=== PATIENT | female | born 1960 | race Two or more races ===

== ENCOUNTER 2023-11-07 06:17 | Day surgery (SDC) | payer BC, SELFPAY ==
[2023-11-07] VITALS (10 sets, daily range): BP systolic 91–132; BP diastolic 45–70; BMI 22.7
[2023-11-07] MEDS: NORMOSOL-R 1000 IV (07:53)
[2023-11-07] MEDS: DILAUDID 0.25 MG IV (10:18)
[2023-11-07] MEDS: DILAUDID 0.5 MG IV (10:29)
[2023-11-07] MEDS: DIFLUCAN 150 MG PO (10:36)
[2023-11-07] MEDS: ROXICODONE 5 MG PO (11:03)
== END 2023-11-07 12:25 | disposition home or self-care (01) ==
LOC: SDS 06:17
PROVIDERS: ATTENDING PHYSICIAN Urology
DX: R10.32 Left lower quadrant pain (principal); Z87.442 Personal history of urinary calculi
CPT/HCPCS: 52351; 74018; 76000; 93005; A4300; C1758; C1769; C1894

== ENCOUNTER → 2024-04-24 07:01 | Outpatient (REF) | payer BC, SELFPAY | LOC: HWRAD 07:01 | PROVIDERS: ATTENDING PHYSICIAN Urology; FAMILY PHYSICIAN Family Medicine | DX: R31.29 Other microscopic hematuria (principal) | CPT/HCPCS: 76775 ==

== ENCOUNTER 2024-12-16 06:18 | Day surgery (SDC) | payer BC, SELFPAY | END 2024-12-16 09:48 | disposition home or self-care (01) | LOC: GI 06:18 | PROVIDERS: ATTENDING PHYSICIAN Internal Medicine | DX: D12.5 Benign neoplasm of sigmoid colon (principal); K57.30 Diverticulosis of large intestine without perforation or abscess without bleeding; K64.8 Other hemorrhoids; R19.4 Change in bowel habit; K29.70 Gastritis, unspecified, without bleeding; K31.7 Polyp of stomach and duodenum; R10.13 Epigastric pain; R63.4 Abnormal weight loss | CPT/HCPCS: 45385; 45380; 43239; 88305; 88342 ==